=== PATIENT | female | born 1970 | race Caucasian/White ===

== ENCOUNTER 2017-11-28 22:03 | Emergency (ER) | payer OTHER ==
[~2017-11-28] VITALS: Ht 165.1 cm; Wt 114.3 kg
[2017-11-29] MEDS ORDERED: IV NORMAL SALINE 1,000ML 1,000 ML IV ONE
[2017-11-29 00:14] LABS: BASO % 0 % (0-3); EOS # 0.1 x10^3/uL (0.0-0.7); EOS % 0 % (0-3); HEMATOCRIT 39.8 % (36.0-47.0); HEMOGLOBIN 12.8 g/dL (12.0-15.5); LYMPH # 1.4 x10^3/uL (1.0-4.8); LYMPH % 12 % (24-48); MEAN CORPUSCULAR HEMOGLOBIN 26 pg (25-35); MEAN CORPUSCULAR HGB CONC 32 g/dL (31-37); MEAN CORPUSCULAR VOLUME 81 fL (79-100); MONO # 0.9 x10^3/uL (0.0-1.1); MONO % 8 % (0-9); NEUT # 9.5 x10^3uL (1.8-7.7); NEUT % 80 % (31-73); PLATELET COUNT 425 x10^3/uL (140-400); RED BLOOD COUNT 4.92 x10^6/uL (3.50-5.40); RED CELL DISTRIBUTION WIDTH 17.1 % (11.5-14.5); WHITE BLOOD COUNT 11.8 x10^3/uL (4.0-11.0)
[2017-11-29] MEDS ORDERED: HYDROmorphone PF 1 MG/ML DISP.SYRIN IV PRN (00:15)
[2017-11-29] MEDS ORDERED: ONDANSETRON PF 4 MG/2 ML VIAL. IV ONE (00:15)
[2017-11-29] MEDS ORDERED: HYDROmorphone PF 2 MG/ML VIAL ONE (00:15)
[2017-11-29 00:24] LABS: BACTERIA,URINE FEW /HPF (0-FEW); BILIRUBIN,URINE NEG (NEG); CLARITY,URINE CLEAR; COLOR,URINE YELLOW; GLUCOSE,URINE NEG (NEG); NITRITE,URINE NEG (NEG); RBC,URINE 0 /HPF (0-2); SQUAMOUS EPITHELIAL CELL,UR MANY /LPF; UROBILINOGEN,URINE 0.2 mg/dL (0.2 mg/dL); WBC,URINE OCC /HPF (0-4)
[2017-11-29] MEDS: HYDROmorphone PF 2 MG/ML VIAL IV PRN ×3 (00:25→03:05)
[2017-11-29 00:28] LABS: PREG TEST PT QUAL NEGATIVE (NEG)
[2017-11-29] MEDS ORDERED: LABETALOL 20 MG/4 ML DISP.SYRIN. IVP ONE ×3 (01:00→03:15)
--- NOTE | 2017-11-29 01:19 | EKG ---
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
[2017-11-29 01:53] LABS: ALBUMIN 2.6 g/dL (3.4-5.0); CALCIUM 8.5 mg/dL (8.5-10.1); CREATININE 0.7 mg/dL (0.6-1.0); DIRECT BILIRUBIN 0.1 mg/dL (0.0-0.2); GFR 89.7; POTASSIUM 4.5 mmol/L (3.5-5.1); TOTAL BILIRUBIN 0.3 mg/dL (0.2-1.0); TOTAL PROTEIN 6.9 g/dL (6.4-8.2)
--- NOTE | 2017-11-29 02:07 | PHYS DOC ---
Past History Past Medical History: Arthritis, Other Past Surgical History: No Surgical History Alcohol Use: None Drug Use: None Adult General Chief Complaint Chief Complaint: ABDOMINAL PAIN HPI HPI This is a pleasant 47-year-old female presenting to the emergency department today with epigastric abdominal pain which is a sharp shooting pain worse after eating. It does not radiate. It is been present for 3 days. She has a history of rheumatoid arthritis and is on methotrexate, corticosteroids, and cyclobenzaprine. She denies any fevers chills vomiting. Review of systems is negative for chest pain shortness of breath. Negative for nausea or vomiting. neg for jaundice. All other review of systems is negative unless otherwise noted in history of present illness. ED course: 47-year-old female presenting with epigastric abdominal pain found to be significantly hypertensive in the emergency room. She was given labetalol. Blood work ordered and sent. IV fluids nausea and pain medications administered. EKG obtained and reviewed by myself shows sinus rhythm with a regular rate. ST segments congruent. Ultrasound of the right upper quadrant obtained. Blood work obtained which shows white blood cell count just above the reference range of normal. Urinalysis unremarkable. Chemistry panel shows normal bilirubin normal liver function tests. Ultrasound shows all stone at the neck of the gallbladder with gallbladder wall thickening. Given these findings the patient was given IV antibiotics, placed nothing by mouth and transferred to [facility] (pt requested transfer to [facility]) for further evaluation treatment and care. Discussed the case with Dr. Encarnacion who both accepted the patient for direct admission. Review of Systems Review of Systems SEE ABOVE. Current Medications Current Medications Current Medications Medications (Trade) Dose Ordered Sig/Brandon Start Time Stop Time Status Last Admin Dose Admin Hydromorphone HCl (Dilaudid) 0.5 mg PRN Q30MIN PRN 11/29/17 00:30 11/29/17 01:17 0.5 MG Labetalol HCl (Normodyne) 20 mg 1X ONCE 11/29/17 01:00 11/29/17 01:01 DC 11/29/17 01:20 20 MG Ondansetron HCl (Zofran) 4 mg 1X ONCE 11/29/17 00:15 11/29/17 00:16 DC 11/29/17 00:24 4 MG Sodium Chloride 1,000 ml @ 1,000 mls/hr 1X ONCE 11/29/17 00:00 11/29/17 00:59 DC 11/29/17 00:24 1,000 MLS/HR Allergies Allergies Allergies Coded Allergies Type Severity Reaction Last Updated Verified No Known Drug Allergies 11/28/17 No Physical Exam Physical Exam SEE ABOVE Constitutional: Well developed, well nourished, no acute distress, non-toxic appearance. [] HENT: Normocephalic, atraumatic, bilateral external ears normal, oropharynx moist, no oral exudates, nose normal. [] Eyes: PERRLA, EOMI, conjunctiva normal, no discharge. [] No jaundiceness of the conjunctivae Neck: Normal range of motion, no tenderness, supple, no stridor. [] Cardiovascular:Heart rate regular rhythm, no murmur [] Lungs & Thorax: Bilateral breath sounds clear to auscultation [] Abdomen: The patient's abdomen is soft nondistended mildly tender to palpation in the right upper quadrant and epigastrium. Positive Marvin sign. Negative McBurney's point. Skin: Warm, dry, no erythema, no rash. not jaundice. Back: No tenderness, no CVA tenderness. [] Extremities: No tenderness, no cyanosis, no clubbing, ROM intact, no edema. [] Neurologic: Alert and oriented X 3, normal motor function, normal sensory function, no focal deficits noted. [] Psychologic: Affect normal, judgement normal, mood normal. [] Current Patient Data Vital Signs Vital Signs Date Time Temp Pulse Resp B/P (MAP) Pulse Ox O2 Delivery O2 Flow Rate FiO2 11/29/17 01:20 74 238/122 11/28/17 22:03 97.8 18 99 Room Air Lab Results Laboratory Tests Test 11/28/17 23:30 11/28/17 23:33 11/29/17 01:10 White Blood Count 11.8 x10^3/uL (4.0-11.0) H Red Blood Count 4.92 x10^6/uL (3.50-5.40) Hemoglobin 12.8 g/dL (12.0-15.5) Hematocrit 39.8 % (36.0-47.0) Mean Corpuscular Volume 81 fL (79-100) Mean Corpuscular Hemoglobin 26 pg (25-35) Mean Corpuscular Hemoglobin Concent 32 g/dL (31-37) Red Cell Distribution Width 17.1 % (11.5-14.5) H Platelet Count 425 x10^3/uL (140-400) H Neutrophils (%) (Auto) 80 % (31-73) H Lymphocytes (%) (Auto) 12 % (24-48) L Monocytes (%) (Auto) 8 % (0-9) Eosinophils (%) (Auto) 0 % (0-3) Basophils (%) (Auto) 0 % (0-3) Neutrophils # (Auto) 9.5 x10^3uL (1.8-7.7) H Lymphocytes # (Auto) 1.4 x10^3/uL (1.0-4.8) Monocytes # (Auto) 0.9 x10^3/uL (0.0-1.1) Eosinophils # (Auto) 0.1 x10^3/uL (0.0-0.7) Basophils # (Auto) 0.0 x10^3/uL (0.0-0.2) Serum Test, Qualitative Negative (NEG) Urine Collection Type Unknown Urine Color Yellow Urine Clarity Clear Urine pH 5.0 Urine Specific [place] 1.025 Urine Protein Neg (NEG-TRACE) Urine Glucose (UA) Neg mg/dL (NEG) Urine Ketones (Stick) Trace mg/dL (NEG) Urine Blood Neg (NEG) Urine Nitrite Neg (NEG) Urine Bilirubin Neg (NEG) Urine Urobilinogen Dipstick 0.2 mg/dL (0.2 mg/dL) Urine Leukocyte Esterase Neg (NEG) Urine RBC 0 /HPF (0-2) Urine WBC Occ /HPF (0-4) Urine Squamous Epithelial Cells Many /LPF Urine Bacteria Few /HPF (0-FEW) Sodium Level 140 mmol/L (136-145) Potassium Level 4.5 mmol/L (3.5-5.1) Chloride Level 105 mmol/L (98-107) Carbon Dioxide Level 27 mmol/L (21-32) Anion Gap 8 (6-14) Blood Urea Nitrogen 7 mg/dL (7-20) Creatinine 0.7 mg/dL (0.6-1.0) Estimated GFR (Cockcroft-Gault) 89.7 Glucose Level 106 mg/dL (70-99) H Calcium Level 8.5 mg/dL (8.5-10.1) Total Bilirubin 0.3 mg/dL (0.2-1.0) Direct Bilirubin 0.1 mg/dL (0.0-0.2) Aspartate Amino Transferase (AST) 23 U/L (15-37) Alanine Aminotransferase (ALT) 14 U/L (14-59) Alkaline Phosphatase 87 U/L (46-116) Total Protein 6.9 g/dL (6.4-8.2) Albumin 2.6 g/dL (3.4-5.0) L Lipase 76 U/L (73-393) EKG EKG [] Radiology/Procedures Radiology/Procedures [address] [address] IMAGING REPORT Signed PATIENT: GILBERTO SILVA ACCOUNT: [id number] : 1970 LOCATION: ER AGE: 47 SEX: F EXAM STATUS: REG ER ORD. PHYSICIAN: DERRICK VALIENTE MD REASON: epigastric abd pain PROCEDURE: ABDOMEN LTD Right upper quadrant abdominal ultrasound History: Right upper quadrant and gastric pain. Mildly elevated white blood cell count. Comparison: None. Technique: Transabdominal ultrasound images are obtained. Findings: Pancreas is mostly obscured due to overlying bowel gas. Liver is normal in echogenicity. No focal hepatic masses are identified. Right hepatic lobe measures 17.1 cm, normal. Portal flow is hepatopedal. There is an echogenic stone in the gallbladder neck measuring up to 1.7 cm. The gallbladder wall is mildly dilated measuring up to 4 mm. There is no pericholecystic fluid. Sonographic Marvin sign is negative. Common bile duct caliber is normal measuring 5 mm in diameter. The right kidney measures 10 cm in length and is without evidence of obstruction or stone. IVC unremarkable. IMPRESSION: Echogenic stone in the gallbladder neck. Mild gallbladder wall thickening. Cannot exclude cholecystitis. Electronically signed by: Torito Gray MD (11/29/2017 2:23 AM) [facility] DICTATED AND SIGNED BY: TORITO GRAY MD DATE: 11/29/17 0220 CC: DERRICK VALIENTE MD; PCP,UNKNOWN ~ [] Course & Med Decision Making Course & Med Decision Making Pertinent Labs and Imaging studies reviewed. (See chart for details) [] Dragon Disclaimer Dragon Disclaimer This electronic medical record was generated, in whole or in part, using a voice recognition dictation system. Departure Departure: Impression: Primary Impression: Epigastric abdominal pain Additional Impressions: Symptomatic cholelithiasis Thickening of wall of gallbladder Disposition: XFER SHT-TRM HOSP Condition: STABLE Referrals: PCP,UNKNOWN (PCP) Problem Qualifiers DERRICK VALIENTE MD Nov 29, 2017 02:07
--- NOTE | 2017-11-29 02:26 | RAD ---
Right upper quadrant abdominal ultrasound History: Right upper quadrant and gastric pain. Mildly elevated white blood cell count. Comparison: None. Technique: Transabdominal ultrasound images are obtained. Findings: Pancreas is mostly obscured due to overlying bowel gas. Liver is normal in echogenicity. No focal hepatic masses are identified. Right hepatic lobe measures 17.1 cm, normal. Portal flow is hepatopedal. There is an echogenic stone in the gallbladder neck measuring up to 1.7 cm. The gallbladder wall is mildly dilated measuring up to 4 mm. There is no pericholecystic fluid. Sonographic Marvin sign is negative. Common bile duct caliber is normal measuring 5 mm in diameter. The right kidney measures 10 cm in length and is without evidence of obstruction or stone. IVC unremarkable. IMPRESSION: Echogenic stone in the gallbladder neck. Mild gallbladder wall thickening. Cannot exclude cholecystitis. Electronically signed by: Torito Gray MD (11/29/2017 2:23 AM) [facility]
[2017-11-29] MEDS ORDERED: PIP/TAZO PER PHARMACY MC PRN (02:45)
[2017-11-29] MEDS ORDERED: MELO15TA23 PO (03:30)
[2017-11-29] MEDS ORDERED: NAPR-683 PO (03:30)
[2017-11-29] MEDS ORDERED: PRED2.5T PO (03:30)
[2017-11-29] MEDS ORDERED: FOLI1TAB16 PO (03:30)
[2017-11-29] MEDS ORDERED: CYCL-331 PO (03:30)
[2017-11-29] MEDS ORDERED: FERR-26 PO (03:31)
[2017-11-29] MEDS ORDERED: METH2.5T PO (03:31)
[2017-11-29] MEDS ORDERED: TRAM50TA PO (03:31)
[2017-11-29] MEDS ORDERED: PIPERACILLIN/TAZO IV Push 4.5 GM VIAL. IVP ONE (04:00)
[2017-11-29 05:05] VITALS: BP 205/100
== END 2017-11-29 05:12 | disposition short-term general hospital (02) ==
LOC: ER 22:03
DX: K80.20 Calculus of gallbladder without cholecystitis without obstruction (principal); K82.8 Other specified diseases of gallbladder
CPT/HCPCS: 36415; 76705; 80048; 80076; 81001; 83605; 83690; 84484; 84703; 85025; 93005; 96361; 96374; 96375; 96376; 99285; J1170; J2405; J2543; J3490; J7030